=== PATIENT | male | born 1990 | race Native Hawaiian/Other Pacific Islander ===

== ENCOUNTER 2018-06-28 08:52 | Emergency (ER) | payer OTHER ==
[2018-06-28 08:55] VITALS: BMI 21.7
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
[2018-06-28 11:02] VITALS: BP 100/70; PULSE 72; RESP 20; TEMP 98; O2SAT 98
== END 2018-06-28 11:02 | disposition home or self-care (01) ==
LOC: H.ER 08:52
DX: S09.90XA Unspecified injury of head, initial encounter (principal); S00.83XA Contusion of other part of head, initial encounter; H72.92 Unspecified perforation of tympanic membrane, left ear; Y04.0XXA Assault by unarmed brawl or fight, initial encounter; Y92.89 Other specified places as the place of occurrence of the external cause